=== PATIENT | male | born 2000 | race Caucasian/White ===

== ENCOUNTER 2025-02-11 15:01 | Inpatient (IN) ==
[2025-02-11 15:29] LABS: GLUCOSE, URINE (UA) NEGATIVE (NEGATIVE); KETONES,URINE (UA) NEGATIVE (NEGATIVE); OCCULT BLOOD,URINE NEGATIVE (NEGATIVE)
[2025-02-11 15:44] LABS: HCT - HEMATOCRIT 42.2 % (42.0-52.0); HGB - HEMOGLOBIN 14.1 g/dL (14.0-18.0); MEAN PLATELET VOLUME 8.9 fL (7.4-11.4); NRBC ABSOLUTE COUNT (AUTO) 0.00 x10^3/uL; NUCLEATED RED BLOOD CELLS AUTO 0.0 /100WBC; PLT - PLATELET COUNT 289 10^3/uL (130-450); RED CELL DISTRIBUTION WIDTH 11.9 % (12.0-15.0)
[2025-02-11 16:00] LABS: ALT ALANINE AMINOTRANSFERASE 27.0 IU/L (10-60); AST ASPARTATE AMINOTRANSFERASE 11.0 IU/L (10-42); BUN - BLOOD UREA NITROGEN 15.0 mg/dL (6-20); CARBON DIOXIDE - CO2 30.0 mmol/L (21-32); CREATININE 1.0 mg/dL (0.6-1.3); GFR - MDRD 91.0 (>89)
--- NOTE | 2025-02-11 18:41 | ED Physician Documentation ---
PD HPI ABD PAIN Stated complaint Stated Complaint: LRQ ABD PX Chief complaint Chief Complaint: Abd Pain History obtained from History obtained from: Patient and Family Additional information Additional information: sIabel Joy is a 24-year-old male [employer] who 1 week ago began to develop pain in his abdomen it is shifted down to his right lower quadrant he has been able to eat he feels bloated after eating but does not get worsening of his pain. He has not had fever. He has had persistence of this pain and today this pain is worse. He went to the urgent care and was asked come to the emergency department to get a CT scan of the abdomen and pelvis. [place] Coma Scale Assess Eye opening: Spontaneous Verbal response: Oriented Motor response: Obeys Commands Total score: 15 Review of Systems Patient denies fever chills sweats or cough. He has had abdominal pain some nausea and has been able to eat. He has had some diarrhea. He has not had sore throat ear pain headache cough chest pain or shortness of breath Meds/Allgy Home Medications Ambulatory Orders Medication Instructions Recorded Confirmed cyclobenzaprine 10 mg tablet mg PO 02/11/25 02/11/25 ibuprofen 800 mg tablet 800 mg PO 02/11/25 02/11/25 Allergies Allergies Allergy/AdvReac Type Severity Reaction Status Date / Time No Known Drug Allergies Allergy Verified 02/11/25 15:11 PFSH Active Problems All Active Problems (Updated 02/11/25 @ 20:30 by John Obando MD) Appendicitis (Acute) Lower abdominal pain (Acute) Social History Social History (Updated 02/11/25 @ 13:26 by Henri Hager MA) Smoking Status: Never smoker Do you dip or chew tobacco?: No Do you vape?: No Do you feel safe in your home environment?: Yes History of physical, verbal, emotional, or financial abuse?: No Exam Exam Vital Signs: Vital Signs x48h Temp Pulse Resp BP Pulse Ox 02/11/25 18:22 37.2 C 82 126/72 96 02/11/25 15:08 36.9 C 78 20 132/72 H 95 24-year-old male sitting supine on a gurney does not appear to be in distress answers questions appropriately he is pleasant and appears to be a good historian. His vital signs show hypertension with a blood pressure 132/72. Constitutional normal general appearance, no apparent distress, average body habitus, no limitations and alert HENMT normocephalic and head/scalp atraumatic Eyes PERRL and EOMs intact bilaterally Neck/C-Spine visual inspection normal and trachea midline Respiratory breath sounds equal bilaterally, normal respiratory effort and clear to auscultation bilaterally Cardiovascular normal heart rate noted, regular rhythm noted and no murmur Gastrointestinal abdomen soft to palpation There is pain referred to the right lower quadrant with palpation of the left abdomen there is pain specifically over the McBurney's point and there is a negative Little's sign. There is some guarding. 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 and no movement abnormality noted Psychiatry mental status grossly normal, oriented x3, thought process normal, cooperative, affect normal, psychomotor activity normal and memory normal Skin skin color normal and no rash Results Vitals Vitals: Vital Signs - 24 hr 02/11/25 15:08 02/11/25 18:22 02/11/25 20:12 Temperature 36.9 C 37.2 C Temperature Source Temporal Artery Scan Temporal Artery Scan Pulse Rate 78 82 Respiratory Rate 20 Blood Pressure 132/72 H 126/72 O2 Saturation 95 96 O2 Source Room air Room air Pain Intensity 7 7 8 Oxygen O2 Source Room air Labs Labs: Laboratory Tests 02/11/25 02/11/25 15:18 15:38 WBC 12.7 H RBC 4.76 Hgb 14.1 Hct 42.2 MCV 88.7 MCH 29.6 MCHC 33.4 RDW 11.9 L Plt Count 289 MPV 8.9 Neut # (Auto) 8.9 H Lymph # (Auto) 2.4 [place] # (Auto) 1.0 Eos # (Auto) 0.5 Baso # (Auto) 0.1 Absolute Nucleated RBC 0.00 Nucleated RBC % 0.0 Sodium 137 Potassium 3.7 Chloride 102 Carbon Dioxide 30 Anion Gap 5.0 L BUN 15 Creatinine 1.0 Estimated GFR (MDRD) 91 Glucose 112 H Calcium 9.5 Total Bilirubin 1.6 H AST 11 ALT 27 Alkaline Phosphatase 87 Total Protein 7.7 Albumin 4.6 Globulin 3.1 Albumin/Globulin Ratio 1.5 Lipase 23 Urine Color YELLOW Urine Clarity CLEAR Urine pH 7.0 Ur Specific [place] 1.015 Urine Protein NEGATIVE Urine Glucose (UA) NEGATIVE Urine Ketones NEGATIVE Urine Occult Blood NEGATIVE Urine Nitrite NEGATIVE Urine Bilirubin NEGATIVE Urine Urobilinogen 1 Ur Leukocyte Esterase NEGATIVE Ur Microscopic Review NOT INDICATED Urine Culture Comments NOT INDICATED Rads (name of study) CT ab/pel with: Relevant Findings:: Prelim report reviewed Interpretation: Impression: Acute appendicitis with gangrene. Significant inflammatory changes surrounding the appendix. No free air or abscess. Enhancement of the peritoneal lining in the right lower quadrant, consistent with peritonitis. Small amount of free fluid in the pelvis without enhancement. PD Medical Decision Making ED course Complexity details: reviewed old records, reviewed results, considered differential and d/w patient Reviewed Lab Results: We reviewed a complete blood count showing an elevated white blood cell count of 12.7 and normal hemoglobin hematocrit and platelets differential favors neutrophils chemistries show normal electrolytes normal kidney and liver function total bilirubin mildly elevated at 1.6 urinalysis is unremarkable. I interpret these laboratory studies in the context of the patient's CAT scan showing appendicitis that he has appendicitis and elevation of the white blood cell count leads in the diagnosis. ED course: 24-year-old male with a 1 week history of abdominal pain that is localized to the right lower quadrant has an exam consistent with the possibility of appendicitis and this is borne out to be true with CT scanning of the abdomen pelvis. He has elevated white blood cell count and inflammatory changes of the appendix including gangrene without abscess. The surgeon Dr. Lux is consulted in the case and will come to the emergency department to evaluate the patient. Discharge Plan Discharge Patient Disposition: ED Transfer to [facility] Clinical Impression: Appendicitis Qualifiers: Appendicitis type: acute appendicitis Acute appendicitis type: with localized peritonitis Appendicitis gangrene presence: with gangrene Appendicitis perfora tion presence: without perforation Appendicitis abscess presence: without abscess Qualified Code(s): K35.31 - Acute appendicitis with localized peritonitis and gangrene, without perforation Prescriptions: No Action cyclobenzaprine 10 mg tablet PO ibuprofen 800 mg tablet 800 mg PO Print Language: Vietnamese Stand Alone Forms: PCP List
--- NOTE | 2025-02-11 19:49 | CT Report ---
PROCEDURE: CT Abdomen/Pelvis W INDICATIONS: RLQ pain CONTRAST: Omni 300 100ml TECHNIQUE: After the administration of intravenous contrast, a CT scan of the abdomen and pelvis was performed. Images were recorded and evaluated at appropriate window settings. Reformats: coronal and sagittal. For radiation dose reduction, the following was used: automated exposure control, adjustment of mA and/or kV according to patient size. COMPARISON: None. FINDINGS: Image quality: Diagnostic. Lower chest: Unremarkable. Liver: Subcentimeter hypoattenuating lesion in segment 2, likely a small cyst. Gallbladder: PICC line Biliary tree: No intrahepatic or extrahepatic dilation, accounting for age. Spleen: No splenomegaly. Pancreas: No pancreatic ductal dilation. Adrenals: No adrenal nodule. Kidneys and ureters: No hydronephrosis. No renal cystic lesion which requires follow up. No solid mass. Stomach, bowel and peritoneum: The appendix is significantly dilated, with severe periappendiceal inflammatory changes. Portions of the wall do not demonstrate enhancement. There is no free air or adjacent abscess. Enhancement of the peritoneum in the right lower quadrant. Trace free fluid in the pelvis, without wall enhancement. Lymph nodes: Reactive right lower quadrant lymph nodes. Vessels: No infrarenal aortic aneurysm. Patent portal vein. PELVIS Reproductive organs: Unremarkable. Bladder: No abnormal wall thickening. Pelvic lymph nodes: No pelvic adenopathy by size criteria. Bones: No aggressive osseous abnormality. Other: No significant ventral or inguinal hernia. IMPRESSION: Acute appendicitis with gangrene. Significant inflammatory changes surrounding the appendix. No free air or abscess. Enhancement of the peritoneal lining in the right lower quadrant, consistent with peritonitis. Small amount of free fluid in the pelvis without enhancement. Reviewed by: Rosendo Richardson MD on 02/11/2025 7:48 PM PDT Approved by: Rosendo Richardson MD on 02/11/2025 7:48 PM PDT Station ID: [id number]
[2025-02-11] MEDS: KETOROLAC 30 MG/ML VIAL IVP STA (20:12)
[2025-02-11] MEDS ORDERED: ONDANSETRON ODT 4 MG TABLET TL PRN (21:25)
--- NOTE | 2025-02-11 21:34 | HISTORY & PHYSICAL EXAMINATION ---
Chief Complaint Chief Complaint Chief Complaint: I'm having pain in my abdomen. History of Present Illness History of Present Illness HPI Comment/Other: This is a very pleasant 24-year-old gentleman who complains of abdominal pain mostly located in his right lower quadrant since last Monday, for the last 8 days. Today, his pain became worse and his convinced him to come to the emergency department. He describes the pain as achy in nature and worse with activity and palpation. It is made better with pain medication and lying still. The patient endorses associated chills and loose stools but denies any fevers, nausea, vomiting, blood in his stool, or constipation. He has never had similar pain in the past. He denies any previous abdominal surgeries.He denies any family history of colon cancer or inflammatory bowel disease. The patient had a large meal at 11:00 this morning and had a cinnamon roll from the vending machine at approximately 6:00 this evening. Colonoscopy Questionnaire In the last 30 days have you experienced these symptoms? PFSH Active Problems All Active Problems Appendicitis (Acute) Lower abdominal pain (Acute) Social History Social History Smoking Status: Never smoker Do you dip or chew tobacco?: No Do you vape?: No Do you feel safe in your home environment?: Yes History of physical, verbal, emotional, or financial abuse?: No POLST Patient has POLST: No Meds/Allgy Home Medications Ambulatory Orders Medication Instructions Recorded Confirmed cyclobenzaprine 10 mg tablet mg PO 02/11/25 02/11/25 ibuprofen 800 mg tablet 800 mg PO 02/11/25 02/11/25 Allergies Allergies Allergy/AdvReac Type Severity Reaction Status Date / Time No Known Drug Allergies Allergy Verified 02/11/25 15:11 Results Lab Results 02/11/25 15:38 02/11/25 15:38 Other Lab Results: Lab Results x24hrs 02/11/25 02/11/25 Range/Units 15:38 15:18 WBC 12.7 H (4.8-10.8) x10^3/uL RBC 4.76 (4.70-6.10) 10^6/uL Hgb 14.1 (14.0-18.0) g/dL Hct 42.2 (42.0-52.0) % MCV 88.7 (80.0-94.0) fL MCH 29.6 (27.0-31.0) pg MCHC 33.4 (32.0-36.0) g/dL RDW 11.9 L (12.0-15.0) % Plt Count 289 (130-450) 10^3/uL MPV 8.9 (7.4-11.4) fL Neut # (Auto) 8.9 H (1.5-6.6) 10^3/uL Lymph # (Auto) 2.4 (1.5-3.5) 10^3/uL [place] # (Auto) 1.0 (0.0-1.0) 10^3/uL Eos # (Auto) 0.5 (0.0-0.7) 10^3/uL Baso # (Auto) 0.1 (0.0-0.1) 10^3/uL Absolute Nucleated RBC 0.00 x10^3/uL Nucleated RBC % 0.0 /100WBC Sodium 137 (135-145) mmol/L Potassium 3.7 (3.5-4.5) mmol/L Chloride 102 (101-111) mmol/L Carbon Dioxide 30 (21-32) mmol/L Anion Gap 5.0 L (6-13) BUN 15 (6-20) mg/dL Creatinine 1.0 (0.6-1.3) mg/dL Estimated GFR (MDRD) 91 (>89) Glucose 112 H (74-104) mg/dL Calcium 9.5 (8.5-10.3) mg/dL Total Bilirubin 1.6 H (0.2-1.0) mg/dL AST 11 (10-42) IU/L ALT 27 (10-60) IU/L Alkaline Phosphatase 87 (42-121) IU/L Total Protein 7.7 (6.4-8.9) g/dL Albumin 4.6 (3.2-5.5) g/dL Globulin 3.1 (2.1-4.2) g/dL Albumin/Globulin Ratio 1.5 (1.0-2.2) Lipase 23 (11-82) U/L Urine Color YELLOW Urine Clarity CLEAR (CLEAR) Urine pH 7.0 (5.0-7.5) PH Ur Specific [place] 1.015 (1.002-1.030) Urine Protein NEGATIVE (NEGATIVE) mg/dL Urine Glucose (UA) NEGATIVE (NEGATIVE) mg/dL Urine Ketones NEGATIVE (NEGATIVE) mg/dL Urine Occult Blood NEGATIVE (NEGATIVE) Urine Nitrite NEGATIVE (NEGATIVE) Urine Bilirubin NEGATIVE (NEGATIVE) Urine Urobilinogen 1 (NORMAL) E.U./dL Ur Leukocyte Esterase NEGATIVE (NEGATIVE) Ur Microscopic Review NOT INDICATED Urine Culture Comments NOT INDICATED Diagnostic Imaging Results Diagnostic Imaging Results: positive Final report reviewed and Read independently Diagnostic Imaging Results Comments: The patient's CT scan from today demonstrates a an inflammatory phlegmon medial to the colon in the right lower quadrant without any significant free fluid or free air. There is decreased enhancement of the wall of the appendix which appears enlarged which increases concern for gangrenous appendicitis. Review of Systems Status of ROS: 10 or more systems reviewed and unremarkable except as noted in history and below Exam Exam Vital Signs: Vital Signs x48h Temp Pulse Resp BP Pulse Ox 02/11/25 18:22 99.0 F 82 126/72 96 02/11/25 15:08 98.4 F 78 20 132/72 H 95 GEN: No acute distress, appears stated age, alert and oriented HEENT: NCAT, MMM, EOMI NEURO: CN II-XII grossly intact, no obvious focal deficits CV: RRR PULM: Nonlabored, on room air ABD: soft, with mild tenderness to palpation in the left upper and right upper quadrants, and marked tenderness to palpation at McBurney's point in the right lower quadrant. Negative rebound tenderness, negative Rovsing sign, negative psoas sign. Positive voluntary guarding CIRCULATORY: no clubbing, cyanosis, or edema SKIN: no lesions appreciated LYMPH: no obvious lymphadenopathy MSK: 4/4 strength in all extremities PSYCH: Affect is appropriate Impression/Plan Problem List (1) Appendicitis: Plan: This is a 24-year-old gentleman with: 1. Appendicitis, likely gangrenous The patient's history, physical exam, laboratory studies, and imaging are consistent with acute appendicitis. It does not obviously appear perforated, but the duration of the patient's symptoms increase my concern for possible perforation. I discussed the natural history of acute appendicitis with the patient. We also discussed the risks, benefits, and alternatives of laparoscopic appendectomy including the the use of antibiotics alone. Risks discussed include bleeding, infection, damage to surrounding structures, and the need for further surgeries or procedures. We discussed the intraoperative and postoperative plan including the possible need for drain placement. The patient and voiced understanding, his questions were answered, and he he wish to proceed with surgery. Unfortunately, the patient has eaten within the last 3 hours at the time of my visit with him. He will need to be without solid food for at least 6 to 8 hours prior to surgery. I have spoken with the anesthesia team as well as the surgeon on-call tomorrow, and the plan will be to proceed with laparoscopic appendectomy tomorrow morning. I have admitted the patient as a surgical outpatient to the floor tonight. I have ordered sips and chips until midnight and then n.p.o. I have also ordered IV fluids, as needed pain and nausea medication, and IV antibiotics for the patient. Depending on intraoperative findings, I anticipate it is likely the patient will discharge home tomorrow afternoon. I have discussed the patient with my general surgery partner who is on-call tomorrow Dr. John Mendoza who will see the patient tomorrow morning and performed the patient surgery, assuming there are no significant changes in the patient's status overnight. Qualifiers: Acute appendicitis type: with localized peritonitis Appendicitis abscess presence: without abscess Appendicitis gangrene presence: with gangrene Appendicitis perforation presence: without perforation Appendicitis type: a cute appendicitis Qualified Code(s): K35.31 - Acute appendicitis with localized peritonitis and gangrene, without perforation
[2025-02-11] MEDS: SODIUM CHLORIDE 0.9% 1,000 ML IV SCH (22:22)
[2025-02-11] MEDS: ACETAMINOPHEN 325 MG TABLET PO SCH (22:26)
[2025-02-11] MEDS: PIPERACILLIN/TAZOBACTAM 3.375 GM in SODIUM CHLORIDE 0.9% MINIBAG 100 ML IV SCH (22:26)
[2025-02-12] MEDS ORDERED: SODIUM CHLORIDE 0.9% 1,000 ML ONE (05:07)
[2025-02-12] MEDS: KETOROLAC 15 MG/ML VIAL IVP PRN (05:08)
[2025-02-12] MEDS ORDERED: LIDOCAINE-MPF 2% 5 ML VIAL ONE (07:45)
[2025-02-12] MEDS ORDERED: PROPOFOL 200 MG/20 ML VIAL IVP ONE (07:45)
[2025-02-12] MEDS ORDERED: DEXAMETHASONE 4 MG/ML VIAL ONE ×2 (07:46→11:28)
[2025-02-12] MEDS ORDERED: ROCURONIUM 50 MG/5 ML VIAL ONE ×3 (07:46→10:06)
[2025-02-12] MEDS ORDERED: ONDANSETRON 4 MG/2 ML VIAL ONE (07:46)
[2025-02-12] MEDS ORDERED: MIDAZOLAM 2 MG/2 ML VIAL ONE (07:48)
[2025-02-12] MEDS ORDERED: fentaNYL 100 MCG/2 ML VIAL ONE ×2 (07:48→09:33)
--- NOTE | 2025-02-12 08:14 | ANESTHESIA PROCEDURE NOTE ---
Pre-Anesthesia VS, & Labs Diagnosis Surgical Diagnosis:: Acute Appendicitis Procedure Procedure: Appendectomy Vitals Vital Signs: Temp Pulse Resp BP Pulse Ox 37.2 C 86 20 108/64 96 02/12/25 08:10 02/12/25 08:10 02/12/25 08:10 02/12/25 08:10 02/12/25 08:10 NPO NPO: >8 hours Last Food Intake: 02/11 1800 Lab Results Current Lab Results: Laboratory Tests 02/11/25 15:38: WBC 12.7 H, RBC 4.76, Hgb 14.1, Hct 42.2, MCV 88.7, MCH 29.6, MCHC 33.4, RDW 11.9 L, Plt Count 289, MPV 8.9, Neut # (Auto) 8.9 H, Lymph # (Auto) 2.4, [place] # (Auto) 1.0, Eos # (Auto) 0.5, Baso # (Auto) 0.1, Absolute Nucleated RBC 0.00, Nucleated RBC % 0.0, Sodium 137, Potassium 3.7, Chloride 102, Carbon Dioxide 30, Anion Gap 5.0 L, BUN 15, Creatinine 1.0, Estimated GFR (MDRD) 91, Glucose 112 H, Calcium 9.5, Total Bilirubin 1.6 H, AST 11, ALT 27, Alkaline Phosphatase 87, Total Protein 7.7, Albumin 4.6, Globulin 3.1, Albumin/Globulin Ratio 1.5, Lipase 23 Lab results reviewed: Yes 02/11/25 15:38 02/11/25 15:38 Meds/Allgy Home Medications Ambulatory Orders Medication Instructions Recorded Confirmed cyclobenzaprine 10 mg tablet mg PO 02/11/25 02/11/25 ibuprofen 800 mg tablet 800 mg PO 02/11/25 02/11/25 Allergies Allergies Allergy/AdvReac Type Severity Reaction Status Date / Time No Known Drug Allergies Allergy Verified 02/11/25 15:11 PFSH Active Problems All Active Problems Appendicitis (Acute) Lower abdominal pain (Acute) Social History Social History Smoking Status: Never smoker Do you dip or chew tobacco?: No Do you vape?: No Do you feel safe in your home environment?: Yes History of physical, verbal, emotional, or financial abuse?: No POLST Patient has POLST: No Anesthesia Exam (Expanded) Exam General: Alert, Oriented x3 and Cooperative Dental: WNL Mouth Openin Fingerbreadth Neck Mobility: Normal Mallampati classification: II Thyromental Distance: 4-6 cm Respiratory: Lungs clear, Normal breath sounds and No respiratory distress Cardiovascular: Regular rate Exam Exam Vital Signs: Vital Signs x48h Temp Pulse Resp BP Pulse Ox 02/12/25 08:10 37.2 C 86 20 108/64 96 02/12/25 01:44 37.1 C 84 15 113/67 97 Plan Problem List (1) Appendicitis: Qualifiers: Acute appendicitis type: with localized peritonitis Appendicitis abscess presence: without abscess Appendicitis gangrene presence: with gangrene Appendicitis perforation presence: without perforation Appendicitis type: a cute appendicitis Qualified Code(s): K35.31 - Acute appendicitis with localized peritonitis and gangrene, without perforation Plan Anesthesia Type: General Consent for Procedure(s) Verified and Reviewed: Yes Code Status: Attempt Resuscitation ASA Classification ASA classification: 2-Mild systemic disease Is this case an emergency?: No
[2025-02-12] MEDS ORDERED: BUPIVACAINE 0.5%-EPI 1:200000 PF 10 ML VIAL ONE (08:47)
--- NOTE | 2025-02-12 08:54 | HISTORY & PHYSICAL EXAMINATION ---
Chief Complaint Chief Complaint Chief Complaint: Right lower quadrant pain consistent with appendicitis History of Present Illness Admitted From Admitted From:: Emergency department History Obtained From Records Reviewed: Yes and appreciate Dr. Salas's very complete history and physical History obtained from: Patient and chart Exam Limitations: None History of Present Illness HPI Comment/Other: As per Dr. Acosta's history and physical the patient's had a proximately 6 now 7- day history of right lower quadrant pain. Rather than repeat Dr. Acosta's note I would like to point out that the CT scan as well as his white blood cell count and the location of the pain are all consistent with acute appendicitis. All of this was discussed with him again today. The patient anticipates and wishes to proceed with appendectomy today. Specifically nothing has worsened since last night. There is no nausea or vomiting. No increase in his pain. Meds/Allgy Home Medications Ambulatory Orders Medication Instructions Recorded Confirmed cyclobenzaprine 10 mg tablet mg PO 02/11/25 02/11/25 ibuprofen 800 mg tablet 800 mg PO 02/11/25 02/11/25 Allergies Allergies Allergy/AdvReac Type Severity Reaction Status Date / Time No Known Drug Allergies Allergy Verified 02/11/25 15:11 PFSH Active Problems All Active Problems Appendicitis (Acute) Lower abdominal pain (Acute) Social History Social History Smoking Status: Never smoker Do you dip or chew tobacco?: No Do you vape?: No Do you feel safe in your home environment?: Yes History of physical, verbal, emotional, or financial abuse?: No POLST Patient has POLST: No Review of Systems CONSTITUTIONAL: No weight loss, fever, chills, weakness or fatigue. HEENT: Eyes: No visual loss, blurred vision, double vision or yellow sclerae. Ears, Nose, Throat: No hearing loss, sneezing, congestion, runny nose or sore throat. SKIN: No rash or itching. CARDIOVASCULAR: No chest pain, chest pressure or chest discomfort. No palpitations or edema. No change in cardiovascular endurance. RESPIRATORY: No shortness of breath (exertional or resting), cough or sputum. GASTROINTESTINAL: No anorexia, nausea, vomiting or diarrhea. No abdominal pain or blood. GENITOURINARY: No dysuria, urgency, frequency, nocturia. No impotence. NEUROLOGICAL: No headache, dizziness, syncope, paralysis, ataxia, numbness or tingling in the extremities. No change in bowel or bladder control. No memory loss. MUSCULOSKELETAL: No muscle, back pain, joint pain or stiffness. HEMATOLOGIC: No anemia, bleeding or bruising. LYMPHATICS: No enlarged nodes. No history of splenectomy. PSYCHIATRIC: No history of depression or anxiety. ENDOCRINOLOGIC: No reports of sweating, cold or heat intolerance. No polyuria or polydipsia. ALLERGIES: No history of asthma, hives, eczema or rhinitis. Exam Exam Vital Signs: Vital Signs x48h Temp Pulse Resp BP Pulse Ox 02/12/25 08:10 37.2 C 86 20 108/64 96 02/12/25 01:44 37.1 C 84 15 113/67 97 General: 24-year old male, appears stated age, well developed, well nourished HEENT: Normocephalic, atraumatic, extraocular movement intact, mucous membranes pink and moist, sclera anicteric and not injected Neck: Supple without pain on palpation, mass or bruit Cardiac: Regular rate and rhythm without rub, gallop, or murmur Chest: Clear to auscultation bilaterally Abdomen: Exquisite tenderness at McBurney's point, decreased bowel sounds, no hepatomegaly, no splenomegaly, positive Rovsing sign, positive obturator sign, positive psoas sign Genitourinary: Deferred Rectal: Deferred Extremities: No gross neurovascular problem, no clubbing, cyanosis or edema Gait: I did not evaluate as I did not have the patient get out of bed. Psychiatric: Alert and oriented to person place and time, asks and answers questions appropriately, mood and affect appropriate Conclusion/Plan Problem List (1) Appendicitis: Plan: Laparoscopic appendectomy, possible open appendectomy. The indications, procedure, alternatives including no surgery, possible risks including infection (deep or superficial), bleeding requiring transfusion (with all of its risks), and were fully explained to the patient and all questions answered. I also explained the pathophysiology. I explained that following the surgery I did not want him lifting anything over 15 pounds for 6 weeks to allow for optimal healing and to decrease the likelihood that a hernia would occur. All questions were fully answered. Verbal and written consent was obtained. The patient, in preparation for surgery has been nothing by mouth, and has been receiving 3.375 g of Zosyn. I asked him to contact me with any surgical questions and his concerns and he stated that he would. I asked him to let me know if there is any way we can make his stay at [facility] more comfortable and he stated that he would let me know. The plan is to do this operation this morning and to discharge him home following the procedure. 30 minutes of [id number] time spent with the patient, over 80% in discussion and coordination of his care Qualifiers: Acute appendicitis type: with localized peritonitis Appendicitis abscess presence: without abscess Appendicitis gangrene presence: with gangrene Appendicitis perforation presence: without perforation Appendicitis type: a cute appendicitis Qualified Code(s): K35.31 - Acute appendicitis with localized peritonitis and gangrene, without perforation Lab Results Lab results reviewed: Yes 02/11/25 15:38 02/11/25 15:38 Diagnostic Imaging Results Diagnostic Imaging Results: positive Final report reviewed and Read independently
[2025-02-12] MEDS ORDERED: ACETAMINOPHEN 1,000 MG/100 ML 1,000 MG/100 ML BAG IV ONE (09:24)
[2025-02-12] MEDS ORDERED: SUGAMMADEX 200 MG/2 ML VIAL IVP ONE (09:35)
[2025-02-12] MEDS ORDERED: METOCLOPRAMIDE 10 MG/2 ML VIAL IVP PRN (10:26)
[2025-02-12] MEDS ORDERED: fentaNYL 100 MCG/2 ML VIAL IVP PRN (10:26)
[2025-02-12] MEDS ORDERED: MORPHINE 2 MG/ML CARPUJECT IVP PRN (10:26)
[2025-02-12] MEDS ORDERED: ATROPINE ABBOJECT 1 MG/10 ML SYRINGE IVP PRN (10:26)
[2025-02-12] MEDS ORDERED: NALOXONE 0.4 MG/ML VIAL IVP PRN (10:26)
[2025-02-12] MEDS ORDERED: ePHEDrine 50 MG/ML VIAL IVP PRN (10:26)
[2025-02-12] MEDS ORDERED: HYDROmorphone 0.5 MG/0.5 ML SYRINGE IVP PRN (10:26)
[2025-02-12] MEDS ORDERED: ONDANSETRON 4 MG/2 ML VIAL IVP PRN (10:26)
[2025-02-12] MEDS: LACTATED RINGERS 1,000 ML IV SCH (11:00)
[2025-02-12] MEDS ORDERED: HYDROmorphone 1 MG/ML CARPUJECT ONE (11:05)
[2025-02-12] MEDS ORDERED: SODIUM CHLORIDE 0.9% 10 ML VIAL ONE (11:13)
[2025-02-12] MEDS ORDERED: ROPIVACAINE 0.5% PF 20 ML VIAL ONE (11:13)
--- NOTE | 2025-02-12 12:51 | OPERATIVE REPORT ---
Operative Report General Procedure Data: Operation Date: 02/12/25 09:00 Proposed Procedures p Laparoscopic Appendectomy(Not Applicable) - John Mendoza MD Actual Procedures p LAPAROSCOPY WITH ILEOCECECTOMY WITH ILELCOLONIC ANASTOMOSIS(Not Applicable) - John Mendoza MD Pre-Op Diagnosis: ACUTE APPENDICITIS Anesthesia Type General Case Staff Anesthesia Provider: Bailey Treviño Anesthesia Provider: Chris Mccabe Assisting Provider: Lupe Salas Case Times Procedure Start: 02/12/25 09:28 Time out: 02/12/25 09:25 Other Other Information/Narrative: Patient Name: Maikol Joy Patient date: 2000 Patent MR number: [id number] Date of procedure: 02/12/2025 Preoperative Diagnosis/Indications: Acute appendicitis Postoperative Diagnosis: Acute gangrenous perforated appendicitis with abscess Procedure: Laparoscopic appendectomy, CPT 80023 Fluids: 2300 mL EBL: 50 mL Urine output: 150 mL Drains: 19 Trinidadian Moustapha Findings: Densely adherent appendix with surrounding inflammation causing a masslike effect that could not be moved or freed laparoscopically and that obstructed proper visualization Complications: None Surgeon/Dictated by: John Mendoza MD Intraoperative consultation for operative opinion and assist: Dr. Maria Fernanda Salas Transport Coordinator: Alley Boss supervised by Walter Jon CRNA Anesthesia type: General Endotracheal +followed by TAP blocks Procedure: After verbal and written informed consent was obtained detailing the operation, the alternatives the operation including no operation, risks of infection, bleeding requiring transfusion with its risks, nerve injury, and and after I met with the patient confirming the surgery and the site of surgery, the patient was brought to the operative suite and placed supine on the operating table. Great care was taken to avoid pressure points to prevent pressure necrosis or nerve injury. Monitoring devices were applied along with TEDs and pneumatic compression stockings (to prevent DVT). An intravenous line was started and anesthesia was maintained throughout the case. The patient was monitored for cardiac, blood pressure, and oxygen saturation continuously. The patient received preoperative antibiotics for surgical prophylaxis. Alley Boss supervised by Walter Jon CRNAsedated and anesthetized the patient for the entire procedure. The patient was prepped and draped in the usual sterile manner. A "time in" then confirmed that the patient was identified with 3 identifiers (name, date, and medical record number), the history and physical was updated and in the chart, the signed consent confirming the procedure was in the chart, the patient was in the correct position, the aforementioned prophylactic measures were in place or given, we had the correct personnel and equipment to complete the procedure and that anesthesia and the surgical team were given an opportunity to express any concerns. With the agreement of everyone in the room we proceeded with the operation. The initial incision was transverse at the umbilicus and dissection to the linea alba was completed using blunt dissection. The linea alba was grasped with a Raza and incised. In a similar manner the peritoneum was grasped and incised using Metzenbaum scissors. In this location, a 12 mm blunt tipped, balloon tipped port was placed and the balloon was inflated to keep the port in position. The abdominal cavity was insufflated with carbon dioxide to a steady- state pressure of 12 mmHg. 2 additional 5 mm ports were placed in standard locations for laparoscopic appendectomy (above and below the umbilicus at the midline) under direct vision of the 30 degree laparoscope and without incident. The patient was then placed in Trendelenburg position and was rotated slightly to their left. Examination of the right lower quadrant revealed a thickened baseball sized mass in the right lower quadrant that could not be properly mobilized and obstructed visualization of any normal anatomy. I attempted to mobilize this from lateral to medial but the mass itself was so large that I could not properly see a line of dissection or the white line of Toldt. I then attempted to mobilize this medial to lateral but again the mesentery was markedly foreshortened into this mass to make any type of dissection difficult and dangerous. At this point in time I contacted Dr. Maria Fernanda Salas and asked for her intraoperative opinion and assistance with this difficult case. I placed an additional 5 mm port in the left lower quadrant under direct vision to see if this would not help with visualization and mobilization and unfortunately it did not. She promptly arrived and upon visualizing what I described above we both decided that this was impossible to be achieved safely laparoscopically. We discussed the possibility of giving the patient antibiotics and seeing what would occur over the intervening days but if the antibiotics did not work we likely be in a worse operative situation. As such I opted to perform an open appendectomy. I left the abdominal insufflation in place to aid with protecting the bowel and opening the abdomen. I extended the umbilical incision out laterally about 8 cm. Dissection down to the anterior fascia was completed using Bovie electrocautery. The anterior fascia was opened using Bovie electrocautery. I attempted to save the rectus muscle as opposed to cut the rectus muscle initially but this proved to be impossible as the patient was quite muscular and the muscle itself was large and immobile. As such, I transected the muscle using serial application of the Bovie electrocautery. Hemostasis was obtained using Bovie electrocautery. The posterior fascia and the peritoneum were then grasped and incised using Bovie electrocautery entering the abdomen without incident. A medium size Jorge Luis wound protector was placed to help decrease likelihood of wound infection or complications. Even open the right lower quadrant mass was quite large and hard. The advantage of having her hands in the abdomen allowed us to find planes that would separate slightly easier with her fingers (finger fracture). Using this technique we were able to isolate the appendix from the surrounding terminal ileum and right colon. The terminal ileum and right colon had completely encapsulated the appendix which was folded back onto itself. Upon freeing the appendix there was release of moderate amount of white purulent fluid which was sent for aerobic and anaerobic cultures. I cannot overstate the amount of inflammatory and infectious response in the terminal ileum as well as the cecum. It was this inflammation/infection that led me to conclude that the patient would be best served with an ileocecectomy rather than a simple appendectomy as the base of the appendix cannot be cleared to be transected safely. As soon as the terminal ileum was not inflamed or infected I traversed it with a 75 MAXI stapler and fired the stapler thus transecting the terminal ileum and a normal-appearing portion of terminal ileum. Similarly, I transected the right colon in an area that was clearly normal and not affected with the inflammation/infection. The mesentery between these 2 transection points was then taken using serial application of the LigaSure. A nvna-mj-eghi anastomosis was then created taking care not to twist the bowel or to staple across mesentery using a MAXI stapler. The combined defect was then closed using an application of the MAXI stapler taking care to ensure that the staple lines did not meet. The staple line was then buttressed using 3-0 Vicryl in a Lembert fashion. The mesenteric defect was closed using a running 3-0 Vicryl suture. The patient was then irrigated using 1 L of warm sterile saline. After this we changed our gloves and irrigated again with an additional 3 L of warm sterile saline. Through the inferior laparoscopic incision I placed a 19 Trinidadian Moustapha drain which was then secured to the skin using a 3-0 nylon which was Sinan sandaled about the drain. The posterior fascia was then closed at the transverse incision using a running 2-0 PDS suture. The anterior fascia was then similarly closed at the transverse incision using a running 2-0 PDS suture. The skin at all skin incisions was closed using a 4-0 Monocryl after which Mastisol and half-inch Steri-Strips cut in half were placed. The drain was placed to grenade suction. At this point a "timeout" was performed that confirmed that all counts were correct, the procedure that was performed, the blood loss, the IV fluids administered, the patient's condition and any concerns of the operating team had. Dressings were then applied. Having tolerated the procedure well, the patient was extubated and taken to recovery room in good and stable condition. Due to the operative findings this patient will be admitted to the hospital for IV antibiotics and wound and drain care. At the conclusion of the case I spoke with his Bharati and explained to her the operative findings, her 's condition and the proposed postoperative plan. Today's documentation has been created with the assistance of voice recognition software. Therefore, it may contain anomalous punctuation, anomalous independent mis-recognitions, word substitutions, insertions or omissions. Occasional wrong-word or phonetically similar substitutions may also occur all due to the inherent limitations of voice recognition software. I have attempted to correct the above but I recommend that the chart be read carefully to recognize, using context, where the substitutions, insertions or omissions may have occurred.
--- NOTE | 2025-02-12 13:45 | ANESTHESIA POST OP EVALUATION ---
Anesthesia Post Eval Post Anesthesia Eval Vitals: Last Vital Signs Temp 36 C L 02/12/25 13:20 Pulse 90 02/12/25 13:36 Resp 16 02/12/25 13:36 BP 125/76 02/12/25 13:36 Pulse Ox 97 02/12/25 13:36 CV Function Including HR & BP: Stable Pain Control: Satisfactory Nausea & Vomiting: Negative Mental Status: Baseline Respiratory Status: Airway Patent Hydration Status: Satisfactory Anesthesia Complications: None
[2025-02-12] MEDS: ONDANSETRON 4 MG/2 ML VIAL IVP PRN (13:58)
[2025-02-12] MEDS: HYDROmorphone 0.5 MG/0.5 ML SYRINGE IVP PRN (14:38)
--- NOTE | 2025-02-12 15:25 | PHARMACY PROGRESS NOTE ---
Best Possible Medication History Admit Date and Time: 02/12/25 1259 Home Medications Medication Instructions Recorded Confirmed Type cyclobenzaprine 10 mg tablet 10 mg PO DAILY PRN muscle spasm 02/11/25 02/12/25 History ibuprofen 800 mg tablet 800 mg PO Q8H PRN pain 02/1102/12/25 History Processed by: Pharmacy Medications reviewed in ED?: Yes Medication History completed: Yes Patient Interview: Completed Secondary Source(s): Insurance records [facility] Statement: As the person ultimately responsible for medication therapy, providers are able to order a medication from an existing home medication list in [facility] via the "Reconcile Routine" prior to Confirmation of that medication by clinical support manager. Such practice is discouraged except when the physician, in their clinical judgment, deems that a medical need exists for a medication without regard to previous use.
[2025-02-13] MEDS: HYDROmorphone 0.5 MG/0.5 ML SYRINGE IVP PRN (00:53)
[2025-02-13 07:08] LABS: HCT - HEMATOCRIT 38.0 % (42.0-52.0); HGB - HEMOGLOBIN 12.7 g/dL (14.0-18.0); MEAN PLATELET VOLUME 9.0 fL (7.4-11.4); NRBC ABSOLUTE COUNT (AUTO) 0.00 x10^3/uL; NUCLEATED RED BLOOD CELLS AUTO 0.0 /100WBC; PLT - PLATELET COUNT 253 10^3/uL (130-450); RED CELL DISTRIBUTION WIDTH 12.0 % (12.0-15.0)
[2025-02-13 07:29] LABS: BUN - BLOOD UREA NITROGEN 12.0 mg/dL (6-20); CARBON DIOXIDE - CO2 26.0 mmol/L (21-32); CREATININE 0.9 mg/dL (0.6-1.3); GFR - MDRD 103.0 (>89)
--- NOTE | 2025-02-13 08:22 | PROVIDER PROGRESS NOTE ---
Subjective General Admit Date: 02/12/25 Procedure Date: 02/12/25 Post Op Days: 2 Procedure Performed: laparoscopic appendectomy converted to open ileocecectomy with placement of Wound Assessment Wound/Incisions: positive Dressing dry and intact Drain Type: 19 Amharic Moustapha Drain Output Description: serosanguinous Review of Systems CONSTITUTIONAL: No weight loss, fever, chills, weakness or fatigue. HEENT: Eyes: No visual loss, blurred vision, double vision or yellow sclerae. Ears, Nose, Throat: No hearing loss, sneezing, congestion, runny nose or sore throat. SKIN: No rash or itching. CARDIOVASCULAR: No chest pain, chest pressure or chest discomfort. No palpitations or edema. No change in cardiovascular endurance. RESPIRATORY: No shortness of breath (exertional or resting), cough or sputum. GASTROINTESTINAL: No anorexia, nausea, vomiting or diarrhea. Incisional tenderness. GENITOURINARY: No dysuria, urgency, frequency, nocturia. No impotence. NEUROLOGICAL: No headache, dizziness, syncope, paralysis, ataxia, numbness or tingling in the extremities. No change in bowel or bladder control. No memory loss. MUSCULOSKELETAL: No muscle, back pain, joint pain or stiffness. HEMATOLOGIC: No anemia, bleeding or bruising. LYMPHATICS: No enlarged nodes. No history of splenectomy. PSYCHIATRIC: No history of depression or anxiety. ENDOCRINOLOGIC: No reports of sweating, cold or heat intolerance. No polyuria or polydipsia. ALLERGIES: No history of asthma, hives, eczema or rhinitis. Exam Exam Vital Signs: Vital Signs x48h Temp Pulse Resp BP Pulse Ox 02/13/25 08:14 36.5 C 80 20 109/68 97 02/13/25 05:00 36.7 C 68 20 124/66 98 General: 24-year old male, appears stated age, well developed, well nourished HEENT: Normocephalic, atraumatic, extraocular movement intact, mucous membranes pink and moist, sclera anicteric and not injected Neck: Supple without pain on palpation, mass or bruit Cardiac: Regular rate and rhythm without rub, gallop, or murmur Chest: Clear to auscultation bilaterally Abdomen: Decreased bowel sounds, dressings intact including Steristrips and transverse incision Genitourinary: Deferred Rectal: Deferred Extremities: No gross neurovascular problem, no clubbing, cyanosis or edema Gait: I did not evaluate as I did not have the patient get out of bed. Psychiatric: Alert and oriented to person place and time, asks and answers questions appropriately, mood and affect appropriate ABX Reporting Has patient been on IV antibiotics over the past 48 hours?: Yes Impression/Plan Problem List (1) S/P small bowel resection: Plan: D1 s/p laparoscopic appendectomy converted to open ileocecectomy with ileocolostomy intraoperative surgical consultation to Dr. Salas and placement of drain due to operative findings FEN) Decrease IVF. Start liquid diet and if tolerated switch to general. ID) Continue Zosyn Activity) Ambulate as much as possible.
[2025-02-13] MEDS: oxyCODONE 5 MG TABLET PO PRN (14:35)
--- NOTE | 2025-02-14 11:36 | PROVIDER PROGRESS NOTE ---
Subjective General Admit Date: 02/12/25 Procedure Date: 02/12/25 Post Op Days: 2 Procedure Performed: laparoscopic appendectomy converted to open ileocecectomy with placement of Other Other Information/Narrative: Patient had a difficult evening with increased nausea and some vomiting. Patient is asking for stool softener. Wound Assessment Wound/Incisions: positive Dressing dry and intact Drain Type: 19 Jamaican Moustapha Drain Output Description: serosanguinous Review of Systems CONSTITUTIONAL: No weight loss, fever, chills, weakness or fatigue. HEENT: Eyes: No visual loss, blurred vision, double vision or yellow sclerae. Ears, Nose, Throat: No hearing loss, sneezing, congestion, runny nose or sore throat. SKIN: No rash or itching. CARDIOVASCULAR: No chest pain, chest pressure or chest discomfort. No palpitations or edema. No change in cardiovascular endurance. RESPIRATORY: No shortness of breath (exertional or resting), cough or sputum. GASTROINTESTINAL: Positive nausea and vomiting no significant bowel function. Incisional tenderness. GENITOURINARY: No dysuria, urgency, frequency, nocturia. No impotence. NEUROLOGICAL: No headache, dizziness, syncope, paralysis, ataxia, numbness or tingling in the extremities. No change in bowel or bladder control. No memory loss. MUSCULOSKELETAL: No muscle, back pain, joint pain or stiffness. HEMATOLOGIC: No anemia, bleeding or bruising. LYMPHATICS: No enlarged nodes. No history of splenectomy. PSYCHIATRIC: No history of depression or anxiety. ENDOCRINOLOGIC: No reports of sweating, cold or heat intolerance. No polyuria or polydipsia. ALLERGIES: No history of asthma, hives, eczema or rhinitis. Exam Exam General: 24-year old male, appears stated age, well developed, well nourished HEENT: Normocephalic, atraumatic, extraocular movement intact, mucous membranes pink and moist, sclera anicteric and not injected Neck: Supple without pain on palpation, mass or bruit Cardiac: Regular rate and rhythm without rub, gallop, or murmur Chest: Clear to auscultation bilaterally Abdomen: Decreased bowel sounds, dressings intact including Steristrips and transverse incision, no erythema Genitourinary: Deferred Rectal: Deferred Extremities: No gross neurovascular problem, no clubbing, cyanosis or edema Gait: I did not evaluate as I did not have the patient get out of bed. Psychiatric: Alert and oriented to person place and time, asks and answers questions appropriately, mood and affect appropriate Impression/Plan Problem List (1) S/P small bowel resection: Plan: D2 s/p laparoscopic appendectomy converted to open ileocecectomy with ileocolostomy intraoperative surgical consultation to Dr. Salas and placement of drain due to operative findings FEN) Decrease IVF. Continue general diet but do not stress p.o. intake. Inability to take p.o. reliably precludes discharge today. ID) Continue Zosyn. Will check CBC in the a.m. Activity) Ambulate as much as possible. Pain) On oral agents with IV for breakthrough.
[2025-02-15 06:54] LABS: HCT - HEMATOCRIT 34.7 % (42.0-52.0); HGB - HEMOGLOBIN 11.1 g/dL (14.0-18.0); MEAN PLATELET VOLUME 9.0 fL (7.4-11.4); NRBC ABSOLUTE COUNT (AUTO) 0.00 x10^3/uL; NUCLEATED RED BLOOD CELLS AUTO 0.0 /100WBC; PLT - PLATELET COUNT 252 10^3/uL (130-450); RED CELL DISTRIBUTION WIDTH 12.1 % (12.0-15.0)
[2025-02-15 07:12] LABS: ALT ALANINE AMINOTRANSFERASE 21.0 IU/L (10-60); AST ASPARTATE AMINOTRANSFERASE 14.0 IU/L (10-42); BUN - BLOOD UREA NITROGEN 9.0 mg/dL (6-20); CARBON DIOXIDE - CO2 29.0 mmol/L (21-32); CREATININE 0.9 mg/dL (0.6-1.3); GFR - MDRD 103.0 (>89)
--- NOTE | 2025-02-15 10:06 | Discharge Summary ---
"Discharge Summary Admit Date: 02/11/25 Discharge Date: 02/15/25 Discharging Provider: Dr. John Mendoza Primary Care Provider: SIMRAN FLOOD NP Code Status: Attempt Resuscitation DIAGNOSES Admission Diagnoses: Ileocecectomy for complicated appendicitis with abscess Discharge Diagnoses with Status of Each Condition: Acute appendicitis resolved HPI History of Present Illness: Patient presented with a 1 week history of right lower quadrant pain which upon evaluation turned out to be complex appendicitis with abscess. CONSULTS | PROCEDURES Consultations: General surgery Procedures: Open ileocecectomy converted from laparoscopic appendectomy HOSPITAL COURSE Hospital Course: Uncomplicated, the patient required additional time for IV antibiotics, pain management and to allow for GI function to return properly ALLERGIES Allergies Allergy/AdvReac Type Severity Reaction Status Date / Time No Known Drug Allergies Allergy Verified 02/11/25 15:11 MEDICATIONS Ambulatory Orders Medication Instructions Recorded Confirmed cyclobenzaprine 10 mg tablet 10 mg PO DAILY PRN muscle spasm 02/11/25 02/12/25 ibuprofen 800 mg tablet 800 mg PO Q8H PRN pain 02/1102/12/25 levofloxacin 500 mg tablet 500 mg PO DAILY #5 tabs metronidazole 500 mg tablet 500 mg PO Q8H #15 tabs oxycodone 5 mg tablet 5 mg PO Q4HR PRN Severe Pain 02/15/25 (Level 7-10) #10 tabs PHYSICAL EXAM AT DISCHARGE Vital Signs: Vital Signs x48h Temp Pulse Resp BP Pulse Ox 02/15/25 08:27 37 C 63 16 130/80 100 General: 24-year old male, appears stated age, well developed, well nourished HEENT: Normocephalic, atraumatic, extraocular movement intact, mucous membranes pink and moist, sclera anicteric and not injected, excellent mustache, glasses Neck: Supple without pain on palpation, mass or bruit Cardiac: Regular rate and rhythm without rub, gallop, or murmur Chest: Clear to auscultation bilaterally Abdomen: Soft, incisional tenderness, normoactive bowel sounds, no hepatomegaly, no splenomegaly, transverse incision and laparoscopic incisions well approximated with steristrips in place, 19 Fr Moustapha drain with slightly cloudy serosanguinous drainage, I stripped the drain Genitourinary: Deferred Rectal: Deferred Extremities: No gross neurovascular problem, no clubbing, cyanosis or edema Gait: I did not evaluate this morning but he has been ambulating without difficulty Psychiatric: Alert and oriented to person place and time, asks and answers questions appropriately, mood and affect appropriate LABS 02/15/25 06:27 02/15/25 06:27 FOLLOW UP Follow Up: Dr. John Mendoza 02/19/2025 TIME SPENT Time Spent in Discharge (Minutes): 45 Discharge Plan Discharge Patient Disposition: 01 MARIE, Self Care Condition: Good Medically Cleared Date:: 02/15/25 Prescriptions: New oxycodone 5 mg Tablet 5 mg PO Q4HR PRN (Reason: Severe Pain (Level 7-10)) Qty: 10 0RF levofloxacin 500 mg tablet 500 mg PO DAILY Qty: 5 0RF metronidazole 500 mg tablet 500 mg PO Q8H Qty: 15 0RF Continued cyclobenzaprine 10 mg tablet 10 mg PO DAILY PRN (Reason: muscle spasm) ibuprofen 800 mg tablet 800 mg PO Q8H PRN (Reason: pain) Activity Restrictions: No Restrictions Activity Restrictions/Additional Instructions: The patient can have a general diet. The patient can shower, hot tub, and swim. The wound does not need to be and likely should not be covered unless there is drainage. No lifting greater than 15 pounds for a total of 6 weeks from the operation. The only restriction is anything that increases intra-abdominal pressure. Otherwise the patient can walk, climb stairs, and run. Ice pack to the surgical site only if it helps with symptoms. Patient should restart his normal medications today. Contact me with any surgical questions and/or concerns. Please note due to the patient's requirements at work he is NOT to return to work for 6 weeks following the operation March 25, 2025 should be his first day back at work unless there are medical contraindications. Diet: Regular Health Concerns: Please note due to the patient's requirements at work he is NOT to return to work for 6 weeks following the operation March 25, 2025 should be his first day back at work unless there are medical contraindications. Assessment: Patient doing well following an open ileocecectomy for complicated appendicitis. Drain still in place and will be removed this Monday in my office. The patient is to remain on antibiotics and complete his course. Plan of Treatment: Patient doing well following an open ileocecectomy for complicated appendicitis. Drain still in place and will be removed this Monday in my office. The patient is to remain on antibiotics and complete his course. Print Language: Romansh Patient Instructions: Surg Dc Stand Alone Forms: PCP List Follow-up Care: John Mendoza MD [Provider Admit Priv/Credential, Surgery, General] - 02/19/25 Referral Note: He does not need a referral. This is his first postop visit and I will be removing the drain at that time. SIMRAN FLOOD NP [Primary Care Provider, Nurse Practitioner] Vitals documented within 30 minutes of discharge?: Yes"
== END 2025-02-15 12:49 | disposition home or self-care (01) | DRG 331 ==
LOC: ED 15:01 → SDS 21:20 → MS3 21:35
PROVIDERS: ADMIT Surgery; ATTEND Surgery
DX: K35.33 Acute appendicitis with perforation, localized peritonitis, and gangrene, with abscess